=== PATIENT | male | born 1990 | race Caucasian/White ===

== ENCOUNTER → 2021-05-17 | Outpatient (CLI) | payer OTHER ==
--- NOTE | 2021-05-17 14:40 | REP ---
INDICATION: CONTUSION LEFT FRONT WALL OF THORAX. COMPARISON: None. TECHNIQUE: There are four views of the left ribs and a single PA view of the chest. FINDINGS: Left ribs: No rib fracture or other rib abnormality is identified. PA chest: There is no pneumothorax, hemothorax or pulmonary contusion. The lung ross are clear. The cardiac size is normal. IMPRESSION: Negative left rib series. <Electronically signed by González Ansari > 05/17/21 1200
== END ==
LOC: M WUC 13:01
PROVIDERS: ATTEND Physician Assistant
DX: S20.212A Contusion of left front wall of thorax, initial encounter (principal); X58.XXXA Exposure to other specified factors, initial encounter; Y92.9 Unspecified place or not applicable; Y99.9 Unspecified external cause status